=== PATIENT | female | born 1980 | race Caucasian/White ===

== ENCOUNTER 2022-10-13 19:25 | Emergency (ER) | payer BC ==
[~2022-10-13] VITALS: Ht 167.6 cm; Wt 86.0 kg
[2022-10-13] MEDS ORDERED: IBUPROFEN 400MG TABLET PO ONE (21:00)
[2022-10-13] MEDS ORDERED: HYDROCODONE/ACETAMINOPHEN 5/325MG TABLET PO ONE (23:00)
[2022-10-14] MEDS ORDERED: IBUP-2028 MT (01:28)
[2022-10-14 01:30] VITALS: BP 118/75
== END 2022-10-14 01:43 | disposition home or self-care (01) ==
LOC: ER 19:25
DX: R51.9 Headache, unspecified (principal); M54.2 Cervicalgia; M25.552 Pain in left hip; M25.562 Pain in left knee; M79.662 Pain in left lower leg; G89.11 Acute pain due to trauma; V49.49XA Driver injured in collision with other motor vehicles in traffic accident, initial encounter; Y93.89 Activity, other specified; Y92.488 Other paved roadways as the place of occurrence of the external cause
CPT/HCPCS: 72192; 73502; 73552; 73560; 93005; 99285